=== PATIENT | female | born 1990 | race American Indian/Alaskan Native ===

== ENCOUNTER 2017-04-26 01:26 | Emergency (ER) | payer MEDICAID, OTHER ==
[2017-04-26 02:43] VITALS: BP 140/90
[2017-04-26] MEDS ORDERED: TYLENOL PO ONE (05:07)
[2017-04-26 05:12] LABS: Basophils % (Auto) 0.6 % (0.0-1.8); Eosinophils % (Auto) 1.7 % (0.0-4.3); Hematocrit 38.3 % (30.3-42.9); Hemoglobin 12.7 gm/dl (10.1-14.3); Mean Corpuscular HGB Conc 33 % (30-34); Mean Corpuscular Hemoglobin 28 pg (28-32); Mean Corpuscular Volume 86 fl (79-97); Platelet Count 364 K/mm3 (140-440); Red Blood Count 4.46 M/mm3 (3.65-5.03); Red Cell Distribution Width 16.1 % (13.2-15.2); White Blood Count 9.4 K/mm3 (4.5-11.0)
[2017-04-26] MEDS ORDERED: TYLENOL ONE (05:13)
== END 2017-04-26 03:50 | disposition left against medical advice (07) ==
LOC: ED 01:26
DX: R51 Headache (principal); Z53.21 Procedure and treatment not carried out due to patient leaving prior to being seen by health care provider
CPT/HCPCS: 36415; 82375; 84484; 84703; 85025; 93005; 93010